=== PATIENT | male | born 1975 | race Caucasian/White ===

== ENCOUNTER → 2017-04-22 | Outpatient (CLI) | payer OTHER ==
--- NOTE | 2017-04-22 15:21 | KCIC ---
EXAM: Left knee, 3 views. HISTORY: Pain. COMPARISON: None. FINDINGS: Frontal, lateral and oblique views of the left knee are obtained. There is no fracture, dislocation. No effusion is seen. IMPRESSION: No acute osseous finding. Electronically signed by: Lore Gurrola MD (04/22/2017 3:18 PM) [place] [id number]
== END | disposition home or self-care (01) ==
LOC: KCIC 14:50
PROVIDERS: ATTEND Family Medicine
DX: M25.562 Pain in left knee (principal)
CPT/HCPCS: 73562